=== PATIENT | female | born 1960 | race Caucasian/White ===

== ENCOUNTER → 2016-06-01 15:40 | Outpatient (CLI) | payer BC ==
[2015-08-06 08:40] VITALS: BMI 31.8
[~2016-06-01 15:40] MED LIST: CELEXA40 MG PO; FLEXERIL10 MG PO; KLONOPIN1 MG PO; LOPRESSOR50 MG PO; METAGLIP 5/5001 TAB PO; NORCO 10/325 TA1 TA1 PO; ONGLYZA2.5 MG PO; PRILOSEC20 MG PO; PRINIVIL20 MG PO; PROCARDIA XL 3030 MG PO; SOMA350 MG PO; TRAZODONE HCL150 MG PO; ZOCOR80 MG PO
== END | disposition home or self-care (01) ==
LOC: D.MAMMO 10:00
DX: Z12.31 Encounter for screening mammogram for malignant neoplasm of breast (principal)

== ENCOUNTER → 2017-06-07 16:35 | Outpatient (CLI) | payer BC ==
[2015-08-06 08:40] VITALS: BMI 31.8
== END | disposition home or self-care (01) ==
LOC: D.MAMMO 05-19 14:00
DX: N64.4 Mastodynia (principal)

== ENCOUNTER → 2017-12-20 16:55 | Outpatient (CLI) | payer BC ==
[2015-08-06 08:40] VITALS: BMI 31.8
== END | disposition home or self-care (01) ==
LOC: D.MAMMO 11:00
DX: R92.8 Other abnormal and inconclusive findings on diagnostic imaging of breast (principal)

== ENCOUNTER → 2020-09-05 09:15 | Outpatient (CLI) | payer BC ==
[2015-08-06 08:40] VITALS: BMI 31.8
== END | disposition home or self-care (01) ==
LOC: D.US 09:15
PROVIDERS: ATTEND Family Medicine
DX: R80.9 Proteinuria, unspecified (principal)